=== PATIENT | female | born 1935 | race Caucasian/White ===

== ENCOUNTER → 2016-11-20 | Outpatient (CLI) | payer MEDICARE, BC ==
[~2016-11-20] MED LIST: HYDROCODON-ACE1 EAC7 PO; MEDROL DOSEPAK4 MG PO
--- NOTE | ~2016-11-20 | US135 ---
[facility] A Service of [facility] / [facility] RADIOLOGY TEXT RESULTS PATIENT: CHRISTIANO IGLESIAS LOCATION: CNIV : 34 UNIT #: [id number] AGE: [address]: Troy Duncan MD SEX: F ORDER DR: [id number] [facility] [address] [place], [place] [address] [id number] O MR#: [id number] Acc #: [id number] NAME: CHRISTIANO IGLESIAS : 1935 SEX: F STUDY DATE/TIME: 11/20/2016 14:05 UNIT: CNIV ROOM: STUDY DESCRIPTION: US U/L Ext Art Study Comp Man Attending Physician: Troy Duncan M.D. Referring Physician: Troy Duncan M.D. Ordering Physician: Troy Duncan M.D. Primary Care Physician: Generic Doctor Not In System MEDICAL IMAGING REPORT This report is preliminary unless electronic signature is present EXAM Lower extremity arterial segmental pressures, 11/20/16 HISTORY Peripheral artery disease FINDINGS The right brachial pressure is 166. The left brachial pressure is 155. The right upper thigh pressure is greater than 200. Lower thigh 153, calf 87, dorsalis pedis 82, posterior tibial 88, and toe 45 for an ankle to brachial index of 0.5. The left upper thigh pressure is greater than 230, lower thigh 217, calf 217, dorsalis pedis 149, posterior tibial 163, and toe 84, for an jgnsu-pl-sosoqmpv index of 0.9. Doppler waveforms indicate a monophasic signal in the right posterior tibial and dorsalis pedis arteries, and a biphasic signal in the left posterior tibial and dorsalis pedis arteries. Pulse volume recording tracings demonstrate significant dampening of signal from above the knee to below the knee. IMPRESSION Moderate ischemia of the right leg with an ankle to brachial index of 0.53. 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 Normal perfusion to the left leg with an eyzcf-fv-vwfuhrxw index of 0.98. [facility] A Service of [facility] / [facility] RADIOLOGY TEXT RESULTS PATIENT: CHRISTIANO IGLESIAS LOCATION: [facility] : 34 UNIT #: [id number] AGE: [address]: Troy Duncan MD SEX: F ORDER DR: Dictated by... Addiosn Davis M.D. THIS IS AN ELECTRONICALLY VERIFIED REPORT Addison Davis M.D. at 11/23/2016 8:04 AM [email or web address]/tony TD: 11/20/2016 20:41 JOB #: [id number] MEDICAL IMAGING REPORT Page 1 of 1 COPY
--- NOTE | ~2016-11-20 | US37 ---
[facility] A Service of [facility] & [facility] RADIOLOGY TEXT RESULTS PATIENT: CHRISTIANO IGLESIAS LOCATION: [facility] : 34 UNIT #: [id number] AGE: [address]: Troy Duncan MD SEX: F ORDER DR: [id number] [facility] [address] [place], [place] [address] [id number] O MR#: [id number] Acc #: [id number] NAME: CHRISTIANO IGLESIAS : 1935 SEX: F STUDY DATE/TIME: 11/20/2016 14:15 UNIT: CNIV ROOM: STUDY DESCRIPTION: US Carotid W/Doppler Bilateral Attending Physician: Troy Duncan M.D. Referring Physician: Troy Duncan M.D. Ordering Physician: Troy Duncan M.D. Primary Care Physician: Generic Doctor Not In System MEDICAL IMAGING REPORT This report is preliminary unless electronic signature is present EXAM Carotid duplex scan 11/20/2016 HISTORY Carotid bruit. History of stroke. FINDINGS The right common carotid artery has minimal plaque. There is heterogeneous dense plaque in the right carotid bulb, which extends up into the proximal internal and external carotid arteries. Peak systolic velocity in the mid right internal carotid artery is 78 cm/sec with an end diastolic velocity of 19 cm/sec. The ICA/CCA Ratio on the right is 1.62. Peak systolic velocity in the right external carotid artery is 138 cm/sec. The right vertebral artery is patent with antegrade flow. The left common carotid artery has minimal plaque. There is heterogeneous dense plaque in the left carotid bulb, which extends up into the proximal internal and external carotid arteries. Peak systolic velocity in the mid left internal carotid artery is 88 cm/sec with an end diastolic velocity of 25 cm/sec. Peak systolic velocity in the left external carotid artery is 181 cm/sec. The left vertebral artery is patent with antegrade flow. IMPRESSION Plaque, but no significant stenosis (less than 50%) of the internal carotid arteries bilaterally. Significant stenosis of the external carotid arteries on both sides. Patent vertebral arteries bilaterally with antegrade flow. Dictated by... Addison Davis M.D. [facility] A Service of [facility] & [facility] RADIOLOGY TEXT RESULTS PATIENT: CHRISTIANO IGLESIAS LOCATION: [facility] : 34 UNIT #: [id number] AGE: [address]: Troy Duncan MD SEX: F ORDER DR: THIS IS AN ELECTRONICALLY VERIFIED REPORT Addison Davis M.D. at 11/23/2016 8:03 AM Colin TD: 11/20/2016 18:04 JOB #: [id number] MEDICAL IMAGING REPORT Page 1 of 1 COPY
== END | disposition home or self-care (01) ==
LOC: CNIV 13:45
DX: I73.9 Peripheral vascular disease, unspecified (principal); I65.23 Occlusion and stenosis of bilateral carotid arteries; I99.8 Other disorder of circulatory system; E78.00 Pure hypercholesterolemia, unspecified; I10 Essential (primary) hypertension
CPT/HCPCS: 93880; 93923